=== PATIENT | male | born 1995 | race Caucasian/White ===

== ENCOUNTER → 2020-09-18 13:49 | Outpatient (BNVA) | payer MEDICARE, MEDICAID, SELFPAY | PROVIDERS: Visit Provider Psychiatry & Neurology Psychiatry | DX: F41.1 Generalized anxiety disorder (principal) | CPT/HCPCS: 99204 ==

== ENCOUNTER → 2020-10-18 07:53 | Outpatient (BNVA) | payer MEDICARE, MEDICAID, SELFPAY | PROVIDERS: Visit Provider Psychiatry & Neurology Psychiatry | DX: F41.1 Generalized anxiety disorder (principal) | CPT/HCPCS: 99213 ==

== ENCOUNTER → 2020-12-16 08:39 | Outpatient (BNVA) | payer MEDICARE, MEDICAID, SELFPAY | PROVIDERS: Visit Provider Psychiatry & Neurology Psychiatry | DX: F40.10 Social phobia, unspecified (principal); F41.1 Generalized anxiety disorder | CPT/HCPCS: 99214 ==

== ENCOUNTER → 2021-01-22 07:36 | Outpatient (BNVA) | payer MEDICARE, MEDICAID, SELFPAY | PROVIDERS: Visit Provider Psychiatry & Neurology Psychiatry | DX: F40.10 Social phobia, unspecified (principal); F41.1 Generalized anxiety disorder | CPT/HCPCS: 99214 ==

== ENCOUNTER 2021-04-27 08:07 | Emergency (ER) | payer MEDICARE, MEDICAID, SELFPAY ==
[2021-04-27 08:10] VITALS: BP 122/79; PULSE 99; RESP 16; TEMP 36.8; O2SAT 99; BMI 35.3
--- NOTE | 2021-04-27 08:24 | W.ED.URI ---
HPI - URI/Sore Throat General: Chief Complaint: General Medical Stated Complaint: sob,congestion, ringing in left ear Time Seen by Provider: 04/27/21 08:09 Source: patient Mode of arrival: ambulatory Limitations: no limitations History of Present Illness: HPI Narrative: Patient is a 25-year-old male here stating he believes he has COVID-19. Patient tells me yesterday he woke up with mild body aches, sore throat, rhinorrhea, and a cough. He states he is scheduled to receive his second Moderna COVID immunization tomorrow. No fevers. No sick contacts. MD elicited complaint: cough, sore throat, rhinorrhea, nasal congestion and other (tinnitus) Onset (ago): day(s) Severity: mild Description of mucous: clear Able to tolerate fluids by mouth: Yes Exacerbating factors: nothing Relieving factors: nothing Associated symptoms: Reports nasal congestion; Deny abdominal pain, chills, chest pain, diarrhea, epistaxis, ear or mastoid pain, fever(s), headache(s), nausea, sinus pain or vomiting Treatments prior to arrival: none Review of Systems Const: Reports: body aches; Denies: fever(s), chills, change in appetite, change in weight or fatigue Eyes: Denies: change in vision, photophobia, floaters or seeing flashes ENMT: Reports: throat pain, odynophagia, tinnitus (L), nasal discharge and nasal congestion; Denies: ear or mastoid pain, disequilibrium, epistaxis, post nasal drip or sinus pain Card: Denies: chest pain Resp: Denies: dyspnea GI: Denies: abdominal pain, nausea, vomiting or diarrhea Musc: Denies: neck pain or back pain Skin/Breast: Denies: rash Neuro: Denies: headache(s), numbness in extremities, weakness in extremities, sensory changes, dizziness or vertigo PFSH ED PFSH: Social History Smoking and tobacco status: never smoked Second hand smoke exposure: Yes Alcohol intake: current Alcohol intake frequency: holidays/special occasions only Current gender identity: Male Physical Exam Const: COMMON NORMALS: no acute distress, patient oriented x3, no limitations and alert GENERAL APPEARANCE: cooperative NUTRITIONAL APPEARANCE: overweight HENMT: COMMON NORMALS: normocephalic, atraumatic, hearing grossly normal bilaterally, external ears normal, EAC's normal, Normal external nose present, Normal nasal mucous membranes and turbinates present, moist oral mucous membranes, oropharynx normal and dentition normal HEAD & SCALP: normal to inspection, normocephalic and atraumatic FACE & SINUS: normal facial exam and sinuses nontender NOSE: Normal external nose present and Normal nasal mucous membranes and turbinates present EXTERNAL EAR: Yes external ears normal, Yes mastoids normal and Yes no periauricular adenopathy EXTERNAL AUDITORY CANAL: EAC's normal TYMPANIC MEMBRANE: TM abnormal TM laterality: left (retracted; possible cholesteatoma) MOUTH: Normal oral and palatal mucosa present, lip normal and tongue normal THROAT: posterior oropharynx normal, tonsils normal and uvula midline Eye: GENERAL EYE: appearance normal, both eyes and all related structures Neck/C-Spine: COMMON NORMALS: full ROM, no lymphadenopathy and no meningeal signs Resp: COMMON NORMALS: normal respiratory effort and clear to auscultation bilaterally AUSCULTATION: clear to auscultation bilaterally Cardio: COMMON NORMALS: regular rate and regular rhythm RATE: regular rate RHYTHM: regular rhythm Neuro: COMMON NORMALS: patient oriented x3 SENSORIUM/ORIENTATION: Yes alert MENINGEAL SIGNS: Yes no meningeal signs Skin: COMMON NORMALS: no rashes or lesions noted GENERAL SKIN EXAM: no rashes or lesions noted Course Vital Signs: Vital signs: Vital Signs Temperature 98.3 F 04/27/21 08:10 Pulse Rate 99 04/27/21 08:10 Respiratory Rate 16 04/27/21 08:10 Blood Pressure 122/79 04/27/21 08:10 Pulse Oximetry 99 04/27/21 08:10 MDM - URI/Sore Throat MDM Narrative: Medical decision making narrative: Patient clinically is in no acute distress. His vital signs are stable. CXR is negative. Rapid COVID is negative. DDx: viral URI vs allergic rhinitis. Will put in referral to ENT for L ear tinnitus and abnormal TM findings. Lab Data: Labs: Lab Results 04/27/21 Range/Units 08:33 SARS-CoV-2 Ag (Rap id) Negative (Negative) Imaging Data^: CXR: My impression: NAD Discharge Plan Discharge Patient Disposition: Home Clinical Impression: Viral URI with cough Condition: Stable Prescriptions: No Action atomoxetine [Strattera] 18 mg capsule 18 mg PO DAILY Qty: 30 RF: 2 paroxetine HCl 40 mg tablet 80 mg PO DAILY Qty: 60 RF: 2 trazodone 100 mg tablet 200 mg PO BEDTIME PRN (Reason: insomnia) RF: 0 Tylenol Cold-Flu Severe Day-Nt 0-0-70-325-200 mg (day/night) Tablets, Sequential See Rx Instructions .ROUTE .COMPLEX RF: 0 Otc Cough Syrup See Rx Instructions .ROUTE .COMPLEX RF: 0 Discharge Orders: Discharge ED (Routine); Ordered 04/27/21 Ordered By: Rebekah Schneider Patient Instructions: Upper Respiratory Infection - Adult Activity Restrictions/Additional Instructions: As we discussed your chest XR and your rapid COVID testing were negative today. Coding Level of Care Code ED Scholastic Aptitude Test Grader for Lavon Fwairam Exam Detailed
--- NOTE | 2021-04-27 08:25 | XRR_ITS ---
PROCEDURE INFORMATION: Exam: XR Chest Exam date and time: 04/27/2021 8:25 AM Age: 25 years old Clinical indication: Cough and shortness of breath; Additional info: Cough/chills TECHNIQUE: Imaging protocol: XR of the chest. Views: 1 view. COMPARISON: No relevant prior studies available. FINDINGS: Lungs: Unremarkable. No consolidation. Pleural spaces: Unremarkable. No pleural effusion. No pneumothorax. Heart/Mediastinum: Unremarkable. No cardiomegaly. Bones/joints: Unremarkable. XR/XR chest 1V portable [id number] IMPRESSION: No acute findings.
[2021-04-27 09:04] LABS: SARS Covid-2 Antigen Negative (Negative)
[2021-04-27 09:23] VITALS: RESP 16; TEMP 36.8; O2SAT 99
--- NOTE | 2021-04-28 10:45 | DCPLANNER ---
merchandise flow manager had message to schedule a follow up appointment for patient with ENT for L ear tinnitus and possible cholesteatome. merchandise flow manager emailed patients information to Candace Tracy and Naa at [facility]. merchandise flow manager emailed patients information will be printed and reviewed. Clinic will call patient with appointment information.
--- NOTE | 2021-04-29 13:26 | DCPLANNER ---
Patient has a follow up appointment scheduled for Wednesday, April at 9:[address] Kaminski. Clinic will call patient with appointment information.
--- NOTE | 2021-06-12 07:29 | DCPLANNER ---
Patient had a follow up appointment scheduled fo r06.21.21 with ENT - patient did attend the appointment.
== END 2021-04-27 09:23 | disposition home or self-care (01) ==
PROVIDERS: Emergency Provider Physician Assistant
DX: J06.9 Acute upper respiratory infection, unspecified (principal); Z77.22 Contact with and (suspected) exposure to environmental tobacco smoke (acute) (chronic)
CPT/HCPCS: 71045; 87426; 99282

== ENCOUNTER → 2021-08-19 10:39 | Outpatient (BNVA) | payer MEDICARE, MEDICAID, SELFPAY | PROVIDERS: Visit Provider Psychiatry & Neurology Psychiatry | DX: F40.10 Social phobia, unspecified (principal); F41.1 Generalized anxiety disorder | CPT/HCPCS: 99214 ==

== ENCOUNTER → 2021-11-20 10:26 | Outpatient (BNVA) | payer MEDICARE, MEDICAID, SELFPAY | PROVIDERS: Visit Provider Psychiatry & Neurology Psychiatry | DX: F40.10 Social phobia, unspecified (principal); F41.1 Generalized anxiety disorder | CPT/HCPCS: 99213 ==

== ENCOUNTER → 2022-03-20 15:40 | Outpatient (BNVA) | payer MEDICARE, MEDICAID, SELFPAY | PROVIDERS: Visit Provider Psychiatry & Neurology Psychiatry | DX: F40.10 Social phobia, unspecified (principal); F41.1 Generalized anxiety disorder | CPT/HCPCS: 99213 ==

== ENCOUNTER 2022-10-28 19:15 | Emergency (ER) | payer MEDICARE, MEDICAID, SELFPAY ==
[2022-10-28 19:22] VITALS: BMI 35.3
[2022-10-28 19:24] VITALS: BP 113/74; PULSE 101; RESP 16; TEMP 36.9; O2SAT 97
--- NOTE | 2022-10-28 20:11 | W.ED.FALL ---
HPI - Fall General: Chief Complaint: Fall Stated Complaint: fall, buttock pain Time Seen by Provider: 10/28/22 20:11 History of Present Illness: Mr. Evangelista is a 27-year-old gentleman presenting to the emergency room due to fall with reported concern over buttock contour abnormality/torn muscle. He reports slipping and falling down wet stairs landing on his buttocks. Immediately had pain which has persisted. Moderate intensity however improved to mild intensity with [id number] medications. Does have worsening with ambulation though no maryellen weakness identified. No head strike or loss of consciousness. No other specific changes in health, exacerbating, or alleviating factors identified. Onset (ago): hour(s) Fall from: down stairs (#) Fall witnessed: no Place fall occurred: home Loss of consciousness: None Prolonged down time: no Symptoms prior to fall: none Location of injury: buttocks Severity: moderate Quality: aching Associated symptoms-after fall: Reports no associated symptoms Review of Systems General: Reports: 10 or more systems reviewed and unremarkable except in HPI and below PFSH ED PFSH: Medical History Psychiatric care Social History Smoking and tobacco status: never smoked Second hand smoke exposure: Yes Smoking risk assessment/counseling performed?: No Alcohol intake: current Alcohol intake frequency: holidays/special occasions only Alcohol type: hard liquor Desire information about alcohol rehabilitation?: No Counseling given: No Desire information about substance/drug rehabilitation?: No Counseling given: No Current gender identity: Male Physical Exam Const: COMMON NORMALS: alert GENERAL APPEARANCE: cooperative and well developed HENMT: COMMON NORMALS: normocephalic and atraumatic HEAD & SCALP: normocephalic and atraumatic Eye: COMMON NORMALS: conjunctivae normal CONJUNCTIVA: Yes conjunctivae normal SCLERA: sclerae normal Neck/C-Spine: COMMON NORMALS: supple GENERAL: Yes trachea midline Resp: COMMON NORMALS: clear to auscultation bilaterally EFFORT & INSPECTION: Yes able to speak in complete sentences AUSCULTATION: clear to auscultation bilaterally Cardio: COMMON NORMALS: regular rate and regular rhythm RATE: regular rate RHYTHM: regular rhythm GI: COMMON NORMALS: Soft to palpation PALPATION: Yes Soft to palpation and No Tenderness to palpation present (GI) Back/Pelvis: OTHER: There is hematoma and linear contusion with ecchymosis consistent with patient's reported mechanism of injury. Extremity: GENERAL: Yes normal exam except as noted and No edema Neuro: COMMON NORMALS: moves all extremities SENSORIUM/ORIENTATION: Yes alert and No Orientation impaired Psych: COMMON NORMALS: mental status grossly normal and Normal thought process present THOUGHT PROCESS: Normal thought process present Course Vital Signs: Vital signs: Vital Signs Temperature 98.4 F 10/28/22 19:24 Pulse Rate 101 H 10/28/22 19:24 Respiratory Rate 16 10/28/22 19:24 Blood Pressure 113/74 10/28/22 19:24 Pulse Oximetry 97 10/28/22 19:24 Oxygen Delivery Me thod 10/28/22 19:24 MDM - Fall Medical Decision Making 27-year-old male presenting with fall and buttocks pain. No additional injury on head to toe exam. Patient's primary concern is for muscle however injury is much more consistent with hematoma and ecchymosis secondary to soft tissue injury. Minimally antalgic gait and I do not have high clinical suspicion for more severe injury or injury requiring imaging. The results of ED evaluation were discussed with the patient including prescriptions and/or symptomatic cares (if applicable) including appropriate and responsible use, followup plan, and return precautions. The patient verbalized understanding and felt safe for discharge. Medical Records I reviewed the patient's medical records. Lab Data I reviewed the patient's lab results. Discharge Plan Discharge Patient Disposition: Home Clinical Impression: Fall, Contusion, Hematoma Condition: Stable Prescriptions: No Action atomoxetine [Strattera] 18 mg capsule 18 mg PO DAILY Qty: 90 0RF paroxetine HCl 20 mg tablet 20 mg PO DAILY Qty: 90 0RF trazodone 100 mg tablet 300 mg PO BEDTIME PRN (Reason: insomnia) Qty: 270 0RF Tylenol Cold-Flu Severe Day-Nt 5-7-76-325-200 mg (day/night) Tablets, Sequential See Rx Instructions .ROUTE .COMPLEX Rx Instructions: use as directed on box. Otc Cough Syrup See Rx Instructions .ROUTE .COMPLEX Rx Instructions: use as directed on bottle. Discharge Orders: Discharge ED (Routine); Ordered 10/28/22 Ordered By: Jose Contreras Discharge Diet: Usual diet Discharge Activity: Increase activity as tolerated Patient Instructions: Contusion in Adults (ED), Hematoma (ED), Pain Management Activity Restrictions/Additional Instructions: Thank you for visiting the emergency department. You were seen and evaluated for fall with bruising and soft tissue deformity. The most likely cause of the symptoms is hematoma and soft tissue injury. This should improve with time. You may use [id number] medications such as acetaminophen and ibuprofen for pain however please do not exceed the daily recommended dosage as listed on the packaging and please keep in mind that many namebrand medications contain the same active ingredients. Please avoid these medications if previously instructed to do so by another physician due to other underlying medical condition. Please follow-up with your primary care provider, establish with a primary care provider if you do not currently have 1. Return to the emergency department for uncontrolled symptoms or anything else that you are concerned about a feel needs emergency department evaluation. Coding Level of Care Code ED Fur Vault Attendant for Lavon Rojas
== END 2022-10-28 20:29 | disposition home or self-care (01) ==
PROVIDERS: Emergency Provider Emergency Medicine
DX: S30.0XXA Contusion of lower back and pelvis, initial encounter (principal); Z77.22 Contact with and (suspected) exposure to environmental tobacco smoke (acute) (chronic); W10.8XXA Fall (on) (from) other stairs and steps, initial encounter
CPT/HCPCS: 99282

== ENCOUNTER 2022-11-01 22:03 | Emergency (ER) | payer MEDICARE, MEDICAID, SELFPAY ==
[2022-11-01 22:17] VITALS: BP 129/74; PULSE 111; RESP 18; TEMP 36.7; O2SAT 98; BMI 35.2
--- NOTE | 2022-11-01 22:23 | W.ED.WOUNDLC ---
HPI - Wound/Laceration General: Chief Complaint: Wound/Laceration Stated Complaint: back pain Time Seen by Provider: 11/01/22 22:07 History of Present Illness: 27-year-old male patient comes in today for complaints of injury to the left buttock. Injury occurred on Wednesday. Patient reports increasing size of the bruise. Patient appears nontoxic and moving without difficulty. Review of Systems Skin/Breast: Reports: other (Bruising left buttock) [facility] ED PFSH: Medical History (Updated 11/01/22 @ 22:31 by JAC Mccullough) Psychiatric care Social History (Updated 09/03/22 @ 10:53 by Jose Reveles LPN) Smoking and tobacco status: never smoked Second hand smoke exposure: Yes Smoking risk assessment/counseling performed?: No Alcohol intake: current Alcohol intake frequency: holidays/special occasions only Alcohol type: hard liquor Desire information about alcohol rehabilitation?: No Counseling given: No Desire information about substance/drug rehabilitation?: No Counseling given: No Current gender identity: Male Physical Exam Const: COMMON NORMALS: alert HENMT: COMMON NORMALS: normocephalic HEAD & SCALP: normocephalic Resp: COMMON NORMALS: normal respiratory effort Cardio: COMMON NORMALS: regular rate RATE: regular rate Extremity: RIGHT LOWER EXTREMITY: Yes hip joint (Increasing bruising to the left buttock.) Neuro: SENSORIUM/ORIENTATION: Yes alert Skin: COMMON NORMALS: turgor normal GENERAL SKIN EXAM: turgor normal Course Vital Signs: Vital signs: Vital Signs Temperature 98.1 F 11/01/22 22:17 Pulse Rate 111 H 11/01/22 22:17 Respiratory Rate 18 11/01/22 22:17 Blood Pressure 129/74 11/01/22 22:17 Pulse Oximetry 98 11/01/22 22:17 Oxygen Delivery Me thod 11/01/22 22:17 MDM - Wound/Laceration Medical Decision Making Patient comes in for evaluation of bruise to the left buttock. He had been previously seen and was concerned due to enlargement of the bruise. On exam there is a large bruise to the left buttock with central clearing. Differential diagnosis includes hematoma, contusion, fracture. No signs of fracture is noted. Patient just has a large bruise that is starting to dissipate and spread across the buttock. Reassured patient with recommendations for follow-up or return to the ER. Discharge Plan Discharge Patient Disposition: Home Clinical Impression: Contusion of buttock Qualifiers: Encounter type: subsequent encounter Qualified Code(s): S30.0XXD - Contusion of lower back and pelvis, subsequent encounter Condition: Stable Prescriptions: No Action atomoxetine [Strattera] 18 mg capsule 18 mg PO DAILY Qty: 90 0RF paroxetine HCl 20 mg tablet 20 mg PO DAILY Qty: 90 0RF trazodone 100 mg tablet 300 mg PO BEDTIME PRN (Reason: insomnia) Qty: 270 0RF Tylenol Cold-Flu Severe Day-Nt 7-3-96-325-200 mg (day/night) Tablets, Sequential See Rx Instructions .ROUTE .COMPLEX Rx Instructions: use as directed on box. Otc Cough Syrup See Rx Instructions .ROUTE .COMPLEX Rx Instructions: use as directed on bottle. Discharge Orders: Discharge ED (Routine); Ordered 11/01/22 Ordered By: David Noguera Discharge Diet: Usual diet Discharge Activity: Increase activity as tolerated Patient Instructions: Contusion in Adults (ED) Activity Restrictions/Additional Instructions: Home and rest. Ice packs to the area. Use acetaminophen as needed for pain. Use ice packs on and off for the next 3 days. And then after that she can use warm moist packs. Monitor site for signs of infection such as increased redness, and fever. Return to ER for new concerns. Coding Level of Care Code ED Lathe Tender for Lavon Rojas
[2022-11-01 22:35] VITALS: PULSE 90; RESP 18
== END 2022-11-01 22:35 | disposition home or self-care (01) ==
PROVIDERS: Emergency Provider Nurse Practitioner Family
DX: S30.0XXA Contusion of lower back and pelvis, initial encounter (principal); Z77.22 Contact with and (suspected) exposure to environmental tobacco smoke (acute) (chronic); X58.XXXA Exposure to other specified factors, initial encounter
CPT/HCPCS: 99282

== ENCOUNTER 2022-11-04 03:47 | Emergency (ER) | payer MEDICARE, MEDICAID, SELFPAY ==
[2022-11-04 03:56] VITALS: BP 123/100; PULSE 110; RESP 22; TEMP 36.9; O2SAT 98; BMI 25.1
[2022-11-04 04:02] VITALS: BP 133/91; PULSE 105; RESP 20; O2SAT 98
[2022-11-04] MEDS: LORazepam 1 mg Tablet PO (04:06)
--- NOTE | 2022-11-04 04:24 | ECG_ITS ---
[facility] Test Date: 2022-11-04 Pat Name: Antonio Evangelista Department: Room: Gender: Male Equip Tech: : 1995 Requested By: Bronson Nixon Order Number: [id number] [place] MD: Marquita Baum M.D. Measurements Intervals [place] Rate: 102 P: 51 NE: 156 QRS: 52 QRSD: 91 T: 32 QT: 331 QTc: 433 Interpretive Statements SINUS TACHYCARDIA INCOMPLETE RIGHT BUNDLE BRANCH BLOCK [90+ ms QRS DURATION, TERMINAL R IN V1/V2, 40+ ms S IN I/aVL/V4/V5/V6] NONSPECIFIC T-WAVE ABNORMALITY No previous ECG available for comparison Electronically Signed On 11-04-2022 10:11:37 MOLDED GOODS EMBOSSING PRESS OPERATOR by Marquita Baum M.D. [id number]
--- NOTE | 2022-11-04 04:35 | W.ED.GENADLT ---
HPI - General Adult General: Chief complaint: General Medical Stated complaint: right arm pain Time Seen by Provider: 11/04/22 03:48 Source: patient Mode of arrival: ambulatory Limitations: no limitations History of Present Illness: 27-year-old male states that he was playing a video game tonight and started having some tingling in his right arm and states he started with some tingling in his neck and face he states that his arm just feels that at times he has some mild pain in his lower arm denies any chest pain denies any headache he denies any fever denies any worsening proving factors. Associated symptoms: Deny chest pain, dyspnea, headache(s), nausea, rash or vomiting Review of Systems Const: Denies: fever(s), chills, body aches or change in appetite Eyes: Denies: blurry vision or eye discomfort ENMT: Denies: throat pain or dental pain Card: Denies: chest pain Resp: Denies: dyspnea GI: Denies: abdominal pain, nausea, vomiting or diarrhea : Denies: dysuria Musc: Reports: extremity pain Skin/Breast: Denies: rash Neuro: Denies: headache(s) Psych: Denies: depression Calos/Lymph: Denies: easy bruising All/Imm: Denies: urticaria PFSH ED PFSH: Medical History Psychiatric care Social History Smoking and tobacco status: never smoked Second hand smoke exposure: Yes Smoking risk assessment/counseling performed?: No Alcohol intake: current Alcohol intake frequency: holidays/special occasions only Alcohol type: hard liquor Desire information about alcohol rehabilitation?: No Counseling given: No Desire information about substance/drug rehabilitation?: No Counseling given: No Current gender identity: Male Physical Exam Const: COMMON NORMALS: no acute distress, patient oriented x3 and healthy appearing HENMT: COMMON NORMALS: normocephalic and atraumatic HEAD & SCALP: normocephalic and atraumatic Eye: COMMON NORMALS: Equal, round and reactive pupils present and EOMs intact bilaterally PUPIL: Yes Equal, round and reactive pupils present Neck/C-Spine: COMMON NORMALS: full ROM and supple Chest: COMMONS NORMALS: normal inspection of the chest and normal palpation of entire chest wall Resp: COMMON NORMALS: normal respiratory effort, No retractions, No use of accessory muscles and clear to auscultation bilaterally AUSCULTATION: clear to auscultation bilaterally Cardio: COMMON NORMALS: regular rate, regular rhythm and No murmurs present (Cardio) RATE: regular rate RHYTHM: regular rhythm GI: COMMON NORMALS: Normal to inspection, nondistended, normoactive bowel sounds present, Soft to palpation, non-tender and no masses PALPATION: Yes Soft to palpation Extremity: COMMON NORMALS: normal to inspection and full ROM Neuro: COMMON NORMALS: patient oriented x3, moves all extremities and no focal motor deficits Psych: COMMON NORMALS: mental status grossly normal, Normal thought process present and cooperative THOUGHT PROCESS: Normal thought process present Skin: COMMON NORMALS: no rashes or lesions noted and no wounds GENERAL SKIN EXAM: no rashes or lesions noted Course Vital Signs: Vital signs: Vital Signs Temperature 98.4 F 11/04/22 03:56 Pulse Rate 105 H 11/04/22 04:02 Respiratory Rate 20 H 11/04/22 04:02 Blood Pressure 133/91 11/04/22 04:02 Pulse Oximetry 98 11/04/22 04:02 [facility] - General Adult Medical Decision Making Patient presents here with paresthesias in his left arm along with some anxiety likely causing his symptoms he is well-appearing here head CT is normal no signs of acute stroke he is stable for discharge. Lab Data Radiology Impressions Head CT 11/04/22 04:46 IMPRESSION: No acute intracranial abnormality. ASSESSMENT: ASPECTS ([place] Stroke Program Early CT Score) is 10. EKG Data EKG 1: I personally reviewed and interpreted this EKG as follows: EKG interpretation date: 11/04/22 EKG interpretation time: 04:24 Interpretation: sinus tach hr [address] or t wave abnormalities qrs 91 qtc 390 Computer generated interpretation: Head CT 11/04/22 04:46 IMPRESSION: No acute intracranial abnormality. ASSESSMENT: ASPECTS ([place] Stroke Program Early CT Score) is 10. Discharge Plan Discharge Patient Disposition: Home Clinical Impression: Arm pain, Paresthesia Condition: Stable Prescriptions: No Action atomoxetine [Strattera] 18 mg capsule 18 mg PO DAILY Qty: 90 0RF paroxetine HCl 20 mg tablet 20 mg PO DAILY Qty: 90 0RF trazodone 100 mg tablet 300 mg PO BEDTIME PRN (Reason: insomnia) Qty: 270 0RF Tylenol Cold-Flu Severe Day-Nt 6-8-97-325-200 mg (day/night) Tablets, Sequential See Rx Instructions .ROUTE .COMPLEX Rx Instructions: use as directed on box. Otc Cough Syrup See Rx Instructions .ROUTE .COMPLEX Rx Instructions: use as directed on bottle. Discharge Orders: Discharge ED (Routine); Ordered 11/04/22 Ordered By: Bronson Nixon Discharge Diet: Advance as tolerated Discharge Activity: Resume usual activity Patient Instructions: Paresthesia (ED) Coding Level of Care Code ED [employer] Agent for Lavon Fwd Exam Comprehensive
--- NOTE | 2022-11-04 04:46 | CTR_ITS ---
PROCEDURE INFORMATION: Exam: CT Head Without Contrast Exam date and time: 11/04/2022 4:49 AM Age: 27 years old Clinical indication: Stroke-like symptoms; Dizziness/giddiness; RT upper extremity weakness; Additional info: [place]GU[place] TECHNIQUE: Imaging protocol: Computed tomography of the head without contrast. Radiation optimization: All CT scans at this facility use at least one of these dose optimization techniques: automated exposure control; mA and/or kV adjustment per patient size (includes targeted exams where dose is matched to clinical indication); or iterative reconstruction. Other technique: STROKE PROTOCOL was implemented. COMPARISON: No relevant prior studies available. RADIATION DOSE METRICS: Total DLP (mGy-cm): 1053.58 FINDINGS: Brain: Normal. No hemorrhage. Unremarkable white matter. No mass effect. Cerebral ventricles: No ventriculomegaly. Paranasal sinuses: Visualized sinuses are unremarkable. No fluid levels. Mastoid air cells: Visualized mastoid air cells are well aerated. Bones/joints: Unremarkable. No acute fracture. Soft tissues: Unremarkable. CT/CT head wo con* [id number] IMPRESSION: No acute intracranial abnormality. ASSESSMENT: ASPECTS ([place] Stroke Program Early CT Score) is 10.
[2022-11-04 05:40] VITALS: PULSE 92; RESP 18; O2SAT 95
== END 2022-11-04 05:41 | disposition home or self-care (01) ==
PROVIDERS: Emergency Provider Emergency Medicine
DX: M79.601 Pain in right arm (principal); R20.2 Paresthesia of skin; Z77.22 Contact with and (suspected) exposure to environmental tobacco smoke (acute) (chronic)
CPT/HCPCS: 70450; 93005; 99284

== ENCOUNTER 2022-11-06 10:39 | Emergency (ER) | payer MEDICARE, MEDICAID, SELFPAY ==
[2022-11-06 10:43] VITALS: BP 136/73; PULSE 114; RESP 18; TEMP 36.1; O2SAT 97; BMI 34.7
--- NOTE | 2022-11-06 11:47 | W.ED.GENADLT ---
HPI - General Adult General: Chief complaint: General Medical Stated complaint: dizzy,slurred speech,numbness Time Seen by Provider: 11/06/22 11:20 History of Present Illness: Patient is a 27-year-old male comes to the ED with anxiety about his health. Patient was seen here in the ED on November 04 and complaining of strokelike type symptoms. He was having symptoms of right arm tingling with right hand and arm stiffness as well. Head CT was performed on the and it was clear showed nothing acute. He was discharged home and provider thought symptoms are likely due to anxiety. Patient does have a history of anxiety disorder. Today says all his symptoms have improved but says he cannot read as fast as he could before symptoms started. Denies any new symptoms. He has an appointment with Dr. Berkowitz on November 10. Associated symptoms: Deny chest pain, dyspnea, headache(s), nausea, rash, palpitations or vomiting Review of Systems Const: Denies: fever(s), chills or fatigue Eyes: Denies: change in vision or eye discomfort ENMT: Denies: throat pain, odynophagia, nasal discharge or nasal congestion Card: Denies: chest pain, palpitations, edema, swelling of feet/ankles, dyspnea on exertion or orthopnea Resp: Denies: dyspnea, productive cough or non-productive cough GI: Denies: abdominal pain, nausea, vomiting, diarrhea, constipation or hematochezia : Denies: flank pain, difficulty urinating, dysuria or hematuria Musc: Denies: neck pain, back pain or extremity swelling Skin/Breast: Denies: rash or new lesions Neuro: Denies: headache(s), numbness in extremities or weakness in extremities PFSH ED PFSH: Medical History Psychiatric care Social History Smoking and tobacco status: never smoked Second hand smoke exposure: Yes Smoking risk assessment/counseling performed?: No Alcohol intake: current Alcohol intake frequency: holidays/special occasions only Alcohol type: hard liquor Desire information about alcohol rehabilitation?: No Counseling given: No Desire information about substance/drug rehabilitation?: No Counseling given: No Current gender identity: Male Physical Exam Const: COMMON NORMALS: patient oriented x3 HENMT: COMMON NORMALS: normocephalic HEAD & SCALP: normocephalic MOUTH: Normal oral and palatal mucosa present THROAT: posterior oropharynx normal and uvula midline Eye: COMMON NORMALS: Equal, round and reactive pupils present and EOMs intact bilaterally GENERAL EYE: appearance normal, both eyes and all related structures PUPIL: Yes Equal, round and reactive pupils present Neck/C-Spine: COMMON NORMALS: supple GENERAL: Yes normal visual inspection Lymph: LYMPHATIC: no lymphadenopathy noted Resp: COMMON NORMALS: normal respiratory effort, No retractions, No use of accessory muscles and clear to auscultation bilaterally AUSCULTATION: clear to auscultation bilaterally Cardio: COMMON NORMALS: regular rate, regular rhythm, S1 normal heart sound present, S2 normal heart sound present, No gallops present (Cardio), No clicks present (Cardio), No murmurs present (Cardio) and Peripheral pulses 2+ throughout RATE: regular rate RHYTHM: regular rhythm HEART SOUNDS: S1 normal heart sound present and S2 normal heart sound present PERIPHERAL PULSES: Peripheral pulses 2+ throughout GI: COMMON NORMALS: Normal to inspection, nondistended, normoactive bowel sounds present, Soft to palpation, non-tender and no masses PALPATION: Yes Soft to palpation : COMMON NORMALS: Yes no CVA tenderness BLADDER/KIDNEY EXAM: Yes no CVA tenderness Back/Pelvis: COMMON NORMALS: no CVA tenderness Extremity: GENERAL: Yes normal exam except as noted Neuro: COMMON NORMALS: patient oriented x3, CN's II-XII intact bilaterally, moves all extremities, no focal motor deficits and no sensory deficits noted SPEECH: speech normal GAIT: Yes Normal gait present SENSORY EXAM: Yes extremities (intact) MOTOR EXAM: 5/5 motor strength present throughout Skin: COMMON NORMALS: no rashes or lesions noted GENERAL SKIN EXAM: no rashes or lesions noted and dry skin Course Vital Signs: Vital signs: Vital Signs Temperature 97.0 F L 11/06/22 10:43 Pulse Rate 89 11/06/22 12:03 Respiratory Rate 16 11/06/22 12:03 Blood Pressure 137/93 11/06/22 12:03 Pulse Oximetry 96 11/06/22 12:03 Oxygen Delivery Me thod 11/06/22 10:43 [facility] - General Adult Medical Decision Making Patient is a 27-year-old male comes to the ED with anxiety about his health. Patient was seen here in the ED on November 04 and complaining of strokelike type symptoms. He was having symptoms of right arm tingling with right hand and arm stiffness as well. Head CT was performed on the and it was clear showed nothing acute. He was discharged home and provider thought symptoms are likely due to anxiety. Patient does have a history of anxiety disorder. Today says all his symptoms have improved but says he cannot read as fast as he could before symptoms started. Denies any new symptoms. He has an appointment with Dr. Berkowitz on November 10. Vitals are stable. Neuro exam shows no deficits. He appears nontoxic in no acute distress or pain. Patient is here in the ED just worried about his health with no signs of any acute health concerns. He has a follow-up with Dr. Berkowitz in several days for outpatient follow-up. Return to ED precautions given. Patient understood and agreed with plan. Discharge Plan Discharge Patient Disposition: Home Clinical Impression: Physically well but worried Condition: Stable Prescriptions: No Action atomoxetine [Strattera] 18 mg capsule 18 mg PO DAILY Qty: 90 0RF paroxetine HCl 20 mg tablet 20 mg PO DAILY Qty: 90 0RF trazodone 100 mg tablet 300 mg PO BEDTIME PRN (Reason: insomnia) Qty: 270 0RF Tylenol Cold-Flu Severe Day-Nt 3-5-10-325-200 mg (day/night) Tablets, Sequential See Rx Instructions .ROUTE .COMPLEX Rx Instructions: use as directed on box. Otc Cough Syrup See Rx Instructions .ROUTE .COMPLEX Rx Instructions: use as directed on bottle. Discharge Orders: Discharge ED (Routine); Ordered 11/06/22 Ordered By: Sahil Cohen Discharge Diet: Regular Discharge Activity: Increase activity as tolerated Activity Restrictions/Additional Instructions: Follow-up with medical provider at your next scheduled appointment on November 10. Continue taking all home medications as previously prescribed. Return to the ER or your medical provider if condition worsens. Please read and understand discharge instructions. Thank you for choosing [facility] for your healthcare needs today. Please realize this is an emergency room and that we are providing you with a medical screening exam and this may not be complete and all inclusive of all the testing and or work up that you may need to determine your ailment or severity of your illness. It is very important that you follow up as instructed or that you return to the Emergency Department should you have concerns or if your condition changes or worsens in any way. Coding Level of Care Code ED Flower Planter for [facility] Exam Comprehensive
--- NOTE | 2022-11-06 12:02 | PC.NURSE ---
pt reports improvement of symptoms since onset. pt speech clear, ambulatory with steady gait, able to move all extremities without assistance or difficulty.
[2022-11-06 12:03] VITALS: BP 137/93; PULSE 89; RESP 16; O2SAT 96
== END 2022-11-06 12:05 | disposition home or self-care (01) ==
PROVIDERS: Emergency Provider Physician Assistant
DX: Z03.89 Encounter for observation for other suspected diseases and conditions ruled out (principal); Z77.22 Contact with and (suspected) exposure to environmental tobacco smoke (acute) (chronic)
CPT/HCPCS: 99282

== ENCOUNTER → 2022-11-12 10:00 | Outpatient (BNVA) | payer MEDICARE, MEDICAID, SELFPAY | PROVIDERS: PCP Family Medicine; Visit Provider Family Medicine | DX: Z13.6 Encounter for screening for cardiovascular disorders (principal) | CPT/HCPCS: 80053; 83036; 85025 ==

== ENCOUNTER 2023-02-19 00:28 | Emergency (ER) | payer MEDICARE, MEDICAID, SELFPAY ==
[2023-02-19 00:32] VITALS: BP 123/81; PULSE 94; RESP 16; TEMP 36.8; O2SAT 97
--- NOTE | 2023-02-19 00:43 | ECG_ITS ---
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 Measurements Intervals Anderson Rate: 96 P: 20 DC: 125 QRS: 19 QRSD: 96 T: 0 QT: 330 QTc: 419 Interpretive Statements SINUS RHYTHM POSSIBLE RIGHT VENTRICULAR CONDUCTION DELAY [RSR (QR) IN V1/V2] MODERATE ST DEPRESSION [0.05+ mV ST DEPRESSION] Compared to ECG 11/04/2022 04:24:15 ST (T wave) deviation now present Sinus tachycardia no longer present Incomplete right bundle-branch block no longer present T-wave abnormality no longer present Electronically Signed On 02-19-2023 21:23:03 CDT by Cristina Bustillo M.D. [id number]
--- NOTE | 2023-02-19 00:43 | W.ED.GENADLT ---
HPI - General Adult General: Chief complaint: General Medical Stated complaint: nausea, fuzzy headed Time Seen by Provider: 02/19/23 00:32 Source: patient Mode of arrival: ambulatory Limitations: no limitations History of Present Illness: 27-year-old male states that just prior to arrival he started to feel nauseous he is diaphoretic states he just had a fuzzy feeling in his head as well he states he still has the nausea the diaphoresis and fuzziness is went away otherwise denies any chest pain denies any headache no slurred speech he has not vomited states he is felt close to vomiting Associated symptoms: Reports nausea; Deny chest pain, dyspnea, headache(s) or rash Review of Systems Const: Denies: fever(s), chills, body aches or change in appetite Eyes: Denies: blurry vision or eye discomfort ENMT: Denies: throat pain or dental pain Card: Denies: chest pain Resp: Denies: dyspnea GI: Reports: nausea : Denies: dysuria Musc: Denies: neck pain or back pain Skin/Breast: Denies: rash Neuro: Denies: headache(s) Psych: Denies: depression Calos/Lymph: Denies: easy bruising All/Imm: Denies: urticaria PFSH ED PFSH: Medical History Psychiatric care Social History Smoking and tobacco status: never smoked Second hand smoke exposure: Yes Smoking risk assessment/counseling performed?: No Alcohol intake: current Alcohol intake frequency: holidays/special occasions only Alcohol type: hard liquor Desire information about alcohol rehabilitation?: No Counseling given: No Desire information about substance/drug rehabilitation?: No Counseling given: No Current gender identity: Male Physical Exam Const: COMMON NORMALS: no acute distress, patient oriented x3 and healthy appearing HENMT: COMMON NORMALS: normocephalic and atraumatic HEAD & SCALP: normocephalic and atraumatic Eye: COMMON NORMALS: Equal, round and reactive pupils present and EOMs intact bilaterally PUPIL: Yes Equal, round and reactive pupils present Neck/C-Spine: COMMON NORMALS: full ROM and supple Chest: COMMONS NORMALS: normal inspection of the chest and normal palpation of entire chest wall Resp: COMMON NORMALS: normal respiratory effort, No retractions, No use of accessory muscles and clear to auscultation bilaterally AUSCULTATION: clear to auscultation bilaterally Cardio: COMMON NORMALS: regular rate, regular rhythm and No murmurs present (Cardio) RATE: regular rate RHYTHM: regular rhythm GI: COMMON NORMALS: Normal to inspection, nondistended, normoactive bowel sounds present, Soft to palpation, non-tender and no masses PALPATION: Yes Soft to palpation Extremity: COMMON NORMALS: normal to inspection and full ROM Neuro: COMMON NORMALS: patient oriented x3, moves all extremities and no focal motor deficits Psych: COMMON NORMALS: mental status grossly normal, Normal thought process present and cooperative THOUGHT PROCESS: Normal thought process present Skin: COMMON NORMALS: no rashes or lesions noted and no wounds GENERAL SKIN EXAM: no rashes or lesions noted Course Vital Signs: Vital signs: Vital Signs Temperature 98.3 F 02/19/23 00:32 Pulse Rate 94 02/19/23 00:32 Respiratory Rate 16 02/19/23 00:32 Blood Pressure 123/81 02/19/23 00:32 Pulse Oximetry 97 02/19/23 00:32 Oxygen Delivery Me thod 02/19/23 00:32 MDM - General Adult Medical Decision Making Patient presents here with nausea he did have some diaphoresis at home has been well-appearing here his EKG blood work is all normal he feels improved we will prescribe Zofran for home he is to follow-up his PCP and return if worsening. Lab Data 02/19/23 01:08 02/19/23 01:08 Laboratory Results WBC 9.9 10^3/uL (4.0-10.0) 02/19/23 01:08 RBC 5.57 10^6/uL (4.1-5.3) H 02/19/23 01:08 Hgb 15.2 g/dL (11.7-16.6) 02/19/23 01:08 Hct 45.7 % (42.0-52.0) 02/19/23 01:08 MCV 82.0 fl (80-94) 02/19/23 01:08 MCH 27.3 pg (28.0-34.0) L 02/19/23 01:08 MCHC 33.3 g/dL (30.0-36.0) 02/19/23 01:08 RDW 12.0 % (12.1-15.1) L 02/19/23 01:08 Plt Count 241 10^3/cmm (130-400) 02/19/23 01:08 MPV 11.3 fL (7.4-10.4) H 02/19/23 01:08 Neut % (Auto) 60.9 % 02/19/23 01:08 Lymph % (Auto) 29.5 % 02/19/23 01:08 Norman % (Auto) 5.8 % 02/19/23 01:08 Eos % (Auto) 2.6 % 02/19/23 01:08 Baso % (Auto) 0.8 % 02/19/23 01:08 Neut # (Auto) 6.05 10^3/uL (1.8-7.7) 02/19/23 01:08 Lymph # (Auto) 2.9 10^3/uL (0.8-4.8) 02/19/23 01:08 Norman # (Auto) 0.6 10^3/uL (0.2-0.9) 02/19/23 01:08 Eos # (Auto) 0.3 10^3/uL (0.0-0.8) 02/19/23 01:08 Baso # (Auto) 0.1 10^3/uL (0.0-0.1) 02/19/23 01:08 Nucleated RBC % (auto) 0 % 02/19/23 01:08 Nucleated RBCs # 0.0 /100WBC 02/19/23 01:08 Sodium 137 mmol/L (136-145) 02/19/23 01:08 Potassium 3.7 mmol/L (3.5-5.1) 02/19/23 01:08 Chloride 100 mmol/L (98-107) 02/19/23 01:08 Carbon Dioxide 25 mmol/L (22-29) 02/19/23 01:08 Anion Gap 15.7 (5-19) 02/19/23 01:08 BUN 13 mg/dL (6-20) 02/19/23 01:08 Creatinine 0.9 mg/dL (0.7-1.2) 02/19/23 01:08 GFR Calculation 100.5 mL/min (90-130) 02/19/23 01:08 Glucose 96 mg/dL (65-115) 02/19/23 01:08 Calculated Osmolality 284 mOsm/kg (285-295) L 02/19/23 01:08 Calcium 9.1 mg/dL (8.5-10.5) 02/19/23 01:08 Total Bilirubin 0.4 mg/dL (0.15-1.2) 02/19/23 01:08 AST 13 U/L (0-40) 02/19/23 01:08 ALT 14 U/L (0-41) 02/19/23 01:08 Alkaline Phosphatase 92 U/L (40-130) 02/19/23 01:08 Total Protein 7.5 g/dL (6.6-8.7) 02/19/23 01:08 Albumin 4.4 g/dL (3.5-5.2) 02/19/23 01:08 Globulin 3.1 g/dL (1.3-4.6) 02/19/23 01:08 Lipase 22 U/L (13-60) 02/19/23 01:08 EKG Data EKG 1: I personally reviewed and interpreted this EKG as follows: EKG interpretation date: 02/19/23 EKG interpretation time: 00:43 Interpretation: nsr hr [address] or t wave abnormalities qrs 96 qtc 384 Discharge Plan Discharge Patient Disposition: Home Clinical Impression: Nausea Condition: Stable Prescriptions: New ondansetron 4 mg tablet,disintegrating 4 mg PO Q6H PRN (Reason: nausea and vomiting) Qty: 14 0RF No Action atomoxetine [Strattera] 18 mg capsule 18 mg PO DAILY Qty: 90 0RF paroxetine HCl 20 mg tablet 20 mg PO DAILY Qty: 90 0RF trazodone 100 mg tablet 300 mg PO BEDTIME PRN (Reason: insomnia) Qty: 270 0RF Discharge Orders: Discharge ED (Routine); Ordered 02/19/23 Ordered By: Bronson Nixon Referrals: Morelia Berkowitz DO [Primary Care Provider] - 1-3 days Discharge Diet: Advance as tolerated Discharge Activity: Resume usual activity Patient Instructions: Acute Nausea and Vomiting (ED) Coding Level of Care Code ED 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
[2023-02-19] MEDS: ondansetron 2 mg/ML SDV 2 mL 4 MG IVP (01:04)
[2023-02-19] MEDS: sodium chloride 0.9% 1,000 ML 999 ML IV (01:04)
[2023-02-19 01:13] LABS: Basophils # 0.1 10^3/uL (0.0-0.1); Basophils % 0.8 %; Eosinophils # 0.3 10^3/uL (0.0-0.8); Eosinophils % 2.6 %; Hematocrit 45.7 % (42.0-52.0); Hemoglobin 15.2 g/dL (11.7-16.6); Lymphocytes # 2.9 10^3/uL (0.8-4.8); Lymphocytes % 29.5 %; Mean Corpuscular HGB Conc 33.3 g/dL (30.0-36.0); Mean Corpuscular Hemoglobin 27.3 pg (28.0-34.0); Mean Platelet Volume 11.3 fL (7.4-10.4); Monocytes # 0.6 10^3/uL (0.2-0.9); Monocytes % 5.8 %; Neutrophils # 6.05 10^3/uL (1.8-7.7); Neutrophils % 60.9 %; Nucleated Red Blood Cells % 0 %; Platelet Count 241 10^3/cmm (130-400); Red Blood Count 5.57 10^6/uL (4.1-5.3); White Blood Count 9.9 10^3/uL (4.0-10.0)
[2023-02-19 01:29] LABS: Alanine Aminotransferase 14 U/L (0-41); Albumin Level 4.4 g/dL (3.5-5.2); Alkaline Phosphatase 92 U/L (40-130); Anion Gap 15.7 (5-19); Aspartate Amino Transferase 13 U/L (0-40); Blood Urea Nitrogen 13 mg/dL (6-20); Calcium 9.1 mg/dL (8.5-10.5); Carbon Dioxide 25 mmol/L (22-29); Chloride 100 mmol/L (98-107); Globulin 3.1 g/dL (1.3-4.6); Glomerular Filtration Rate 100.5 mL/min (90-130); Glucose 96 mg/dL (65-115); Lipase 22 U/L (13-60); Osmolality Calculated 284 mOsm/kg (285-295); Potassium 3.7 mmol/L (3.5-5.1); Sodium 137 mmol/L (136-145); Total Bilirubin 0.4 mg/dL (0.15-1.2); Total Protein 7.5 g/dL (6.6-8.7)
[2023-02-19 02:00] VITALS: BP 119/78; PULSE 80; RESP 18; O2SAT 99
== END 2023-02-19 02:07 | disposition home or self-care (01) ==
PROVIDERS: Emergency Provider Emergency Medicine; PCP Family Medicine
DX: R11.0 Nausea (principal); Z77.22 Contact with and (suspected) exposure to environmental tobacco smoke (acute) (chronic)
CPT/HCPCS: 80053; 83690; 85025; 93005; 96361; 96374; 99284; J2405; J7030

== ENCOUNTER 2023-05-25 09:51 | Emergency (ER) | payer MEDICARE, MEDICAID, SELFPAY ==
[2023-05-25 09:57] VITALS: BP 154/100; PULSE 92; RESP 16; TEMP 36.5; O2SAT 97; BMI 36.4
--- NOTE | 2023-05-25 13:07 | CTR_ITS ---
PROCEDURE INFORMATION: Exam: CT Head Without Contrast Exam date and time: 05/25/2023 1:26 PM Age: 28 years old Clinical indication: Pain; Headache; Additional info: Headache, left sided temporal area, vision changes TECHNIQUE: Imaging protocol: Computed tomography of the head without contrast. Radiation optimization: All CT scans at this facility use at least one of these dose optimization techniques: automated exposure control; mA and/or kV adjustment per patient size (includes targeted exams where dose is matched to clinical indication); or iterative reconstruction. REPORTING DATA: Count of CT and Cardiac NM exams in prior 12 months: This patient has received [address] and 0 known cardiac nuclear medicine studies in the 12 months prior to the current study. COMPARISON: CT head wo con* [id number] 11/04/2022 4:49 AM RADIATION DOSE METRICS: Total DLP (mGy-cm): 1057.34 FINDINGS: Brain: Normal. No hemorrhage. No space-occupying masses or areas of mass effect. No edema or midline shift. Cortical sulci are unremarkable for age. Cerebral ventricles: No ventriculomegaly. Paranasal sinuses: Visualized sinuses are unremarkable. No fluid levels. Mastoid air cells: Visualized mastoid air cells are well aerated. Bones/joints: Unremarkable. Soft tissues: Unremarkable. CT/CT head wo con* [id number] IMPRESSION: Negative CT examination of the head. No acute intracranial abnormalities.
--- NOTE | 2023-05-25 13:23 | ED_ITS ---
HPI - Headache General: Chief Complaint: Headache Stated Complaint: Head pressure Time Seen by Provider: 05/25/23 11:50 History of Present Illness: Patient presents to the ER complaining of a headache on his left temporal region that has been constant for at least the last 5 days. Patient said this has been on and off for the last 3 months but no known triggers or no known resolving agents. 3 months ago patient did have strokelike symptoms when his headache started. Patient was evaluated for that in the strokelike symptoms resolved but the headache has persisted. Patient has not followed up with his family practice doctor and/or neurologist since that event. Patient does state he normally gets headaches due to his poor vision but they are usually on the right side and he has known triggers. He states these are differ Patient is also complaining of insomnia and asked if we could write him something for the next several days. Review of Systems General: Reports: 10 or more systems reviewed and unremarkable except in HPI and below PFSH ED PFSH: Medical History Psychiatric care Social History Smoking and tobacco status: never smoked Second hand smoke exposure: Yes Smoking risk assessment/counseling performed?: No Alcohol intake: current Alcohol intake frequency: holidays/special occasions only Alcohol type: hard liquor Desire information about alcohol rehabilitation?: No Counseling given: No Substance/Drug Use: never Desire information about substance/drug rehabilitation?: No Counseling given: No Current gender identity: Male Physical Exam Const: COMMON NORMALS: no acute distress, average body habitus, patient oriented x3, no limitations, healthy appearing, alert and well nourished HENMT: COMMON NORMALS: normocephalic, atraumatic, hearing grossly normal bilaterally, external ears normal, Normal external nose present and moist oral mucous membranes HEAD & SCALP: normocephalic and atraumatic NOSE: Normal external nose present EXTERNAL EAR: Yes external ears normal Eye: COMMON NORMALS: Equal, round and reactive pupils present, EOMs intact bilaterally, conjunctivae normal and no scleral icterus CONJUNCTIVA: Yes conjunctivae normal PUPIL: Yes Equal, round and reactive pupils present Neck/C-Spine: COMMON NORMALS: full ROM, no lymphadenopathy, supple, no meningeal signs, no JVD and Thyroid normal THYROID: Thyroid normal Chest: COMMONS NORMALS: normal inspection of the chest and normal palpation of entire chest wall Resp: COMMON NORMALS: normal respiratory effort, No retractions, No use of accessory muscles and clear to auscultation bilaterally AUSCULTATION: clear to auscultation bilaterally Cardio: COMMON NORMALS: no JVD, regular rate, regular rhythm, S1 normal heart sound present, S2 normal heart sound present, No gallops present (Cardio), No clicks present (Cardio), No murmurs present (Cardio) and No rub (Cardio) RATE: regular rate RHYTHM: regular rhythm HEART SOUNDS: S1 normal heart sound present and S2 normal heart sound present GI: COMMON NORMALS: Normal to inspection, nondistended, normoactive bowel sounds present, Soft to palpation, non-tender, No hepatosplenomegaly present and no masses PALPATION: Yes Soft to palpation and Yes No hepatosplenomegaly present : COMMON NORMALS: Yes no CVA tenderness BLADDER/KIDNEY EXAM: Yes no CVA tenderness Back/Pelvis: COMMON NORMALS: no CVA tenderness Neuro: COMMON NORMALS: patient oriented x3 SENSORIUM/ORIENTATION: Yes alert MENINGEAL SIGNS: Yes no meningeal signs Course Vital Signs: Vital signs: Vital Signs Temperature 97.7 F 05/25/23 09:57 Pulse Rate 92 05/25/23 09:57 Respiratory Rate 16 05/25/23 09:57 Blood Pressure 154/100 05/25/23 09:57 Pulse Oximetry 97 05/25/23 09:57 Oxygen Delivery Me thod Room Air 05/25/23 09:57 MDM - Headache Medical Decision Making Patient presents to the ER today with complaints of chronic left-sided headache for the last several months. Off and on but has been worse the last 5 days. Patient states he would like to have an MRI. This was explained we do not normally do MRIs to the ER especially people with no focal neurologic signs. Patient will be referred to neuro for chronic headaches. Patient will be given a prescription for Ambien 5 mg to help him sleep at night. Patient is to follow back up with his PCP in approximately the next 7 days for further evaluation and work-up. Differential Diagnosis Likely headache; Unlikely migraine, tension headache, subarachnoid hemorrhage, meningitis, sinusitis or postconcussion syndrome Medical Records I reviewed the patient's medical records. Lab Data I reviewed the patient's lab results. Radiology Impressions Head CT 05/25/23 13:07 IMPRESSION: Negative CT examination of the head. No acute intracranial abnormalities. Discharge Plan Discharge Patient Disposition: Home Clinical Impression: Headache Qualifiers: Headache type: unspecified Headache chronicity pattern: acute headache Intractability: not intractable Qualified Code(s): R51.9 - Headache, unspecified Insomnia Qualifiers: Insomnia type: unspecified Qualified Code(s): G47.00 - Insomnia, unspecified Condition: Stable Prescriptions: New Ambien 5 mg tablet 5 mg PO .qhs PRN (Reason: insomnia) Qty: 7 0RF No Action atomoxetine [Strattera] 18 mg capsule 18 mg PO DAILY Qty: 90 0RF paroxetine HCl 20 mg tablet 20 mg PO DAILY Qty: 90 0RF trazodone 100 mg tablet 300 mg PO BEDTIME PRN (Reason: insomnia) Qty: 270 0RF ondansetron 4 mg tablet,disintegrating 4 mg PO Q6H PRN (Reason: nausea and vomiting) Qty: 14 0RF Discharge Orders: Discharge ED (Routine); Ordered 05/25/23 Ordered By: Kevon Miller Referrals: Morelia Berkowitz DO [Primary Care Provider] - 1 week Patient Instructions: Headache, Insomnia Activity Restrictions/Additional Instructions: Please use all medications as directed. You have been referred to case management for consult to neurology secondary to your headaches. If you have not heard from them in the next 2-3 business days feel free to call back. Otherwise please follow-up with your primary care provider in the next 7 to 10 days as needed. Coding Level of Care Code ED Staff Physical Therapy Assistant for Lavon Rojas
[2023-05-25 14:00] VITALS: BP 123/73
--- NOTE | 2023-05-26 08:56 | DCPLANNER ---
Addendum entered by Patricia Carlson 07/01/23 09:54: Patient did attend appointment scheduled with neurology Addendum entered by Patricia Carlson 06/08/23 14:19: Patient has a follow up appointment scheduled for Sunday, June 18, 2023 at 9:[address] Bello at neurology. Original Note: procurement manager had message to schedule a follow up appointment for patient with neurology. procurement manager sent patients information to the front office staff at neurology. Patients information will be printed and reviewed. Clinic will call patient with appointment information.
== END 2023-05-25 14:22 | disposition home or self-care (01) ==
PROVIDERS: Emergency Provider Emergency Medicine; PCP Family Medicine
DX: R51.9 Headache, unspecified (principal); G47.00 Insomnia, unspecified; Z79.899 Other long term (current) drug therapy
CPT/HCPCS: 70450; 99284

== ENCOUNTER → 2023-06-11 13:21 | Outpatient (BNVA) | payer MEDICARE, MEDICAID, SELFPAY | PROVIDERS: PCP Family Medicine; Visit Provider Family Medicine | DX: I10 Essential (primary) hypertension (principal); D50.9 Iron deficiency anemia, unspecified | CPT/HCPCS: 82728; 83550; 84443; 85025 ==

== ENCOUNTER → 2023-06-18 09:04 | Outpatient (BNVA) | payer MEDICARE, MEDICAID, SELFPAY | PROVIDERS: PCP Family Medicine; Referring Provider Emergency Medicine; Visit Provider Specialist | DX: G44.59 Other complicated headache syndrome (principal) | CPT/HCPCS: 99204 ==

== ENCOUNTER 2023-07-02 23:37 | Emergency (ER) | payer MEDICARE, MEDICAID, SELFPAY ==
[2023-07-02 23:41] VITALS: BP 134/84; PULSE 103; RESP 16; TEMP 36.6; O2SAT 98; BMI 35.3
[2023-07-03 00:29] VITALS: BP 129/85; PULSE 108; RESP 16; O2SAT 98
--- NOTE | 2023-07-03 00:38 | ED_ITS ---
HPI - General Adult General: Chief complaint: General Medical Stated complaint: right arm numbness Time Seen by Provider: 07/03/23 00:02 History of Present Illness: 28-year-old male presenting with pressure in the right side of his head in the temporal region for the last week. He says he has had nearly constant pressure since the . Pain is improved in the morning, but within 20 minutes to an hour it seems to be back. He is also noted that his blood pressure has been high at times. This evening, for instance, it was 166 systolic. He took an extra lisinopril 10 mg, and it has decreased to some degree. This evening, he also noted numbness to the right arm which has improved to some degree. No chest pain, no shortness of breath. No weakness or dizziness, no vision changes. Associated symptoms: Reports headache(s); Deny chest pain, confusion, dyspnea, nausea, rash, palpitations or vomiting Review of Systems Const: Denies: fever(s), chills or body aches Eyes: Denies: change in vision Card: Denies: chest pain or palpitations Resp: Denies: dyspnea, productive cough, non-productive cough or wheezing GI: Denies: abdominal pain, nausea, vomiting, diarrhea or hematochezia Skin/Breast: Denies: rash Neuro: Reports: headache(s) and numbness in extremities; Denies: weakness in extremities, dizziness or confusion PFSH ED PFSH: Medical History Psychiatric care Social History Smoking and tobacco status: never smoked Second hand smoke exposure: Yes Smoking risk assessment/counseling performed?: No Alcohol intake: current Alcohol intake frequency: holidays/special occasions only Alcohol type: hard liquor Desire information about alcohol rehabilitation?: No Counseling given: No Substance/Drug Use: never Desire information about substance/drug rehabilitation?: No Counseling given: No Current gender identity: Male Physical Exam Const: COMMON NORMALS: no acute distress GENERAL APPEARANCE: cooperative and anxious; not ill appearing and not frail appearing HENMT: COMMON NORMALS: normocephalic, atraumatic and Normal external nose present HEAD & SCALP: normocephalic and atraumatic FACE & SINUS: normal facial exam and face symmetric NOSE: Normal external nose present Eye: COMMON NORMALS: Equal, round and reactive pupils present and EOMs intact bilaterally PUPIL: Yes Equal, round and reactive pupils present Neck/C-Spine: GENERAL: Yes trachea midline Chest: CHEST: Yes Symmetrical chest wall rise Resp: COMMON NORMALS: normal respiratory effort, No retractions, No use of accessory muscles and clear to auscultation bilaterally AUSCULTATION: clear to auscultation bilaterally Cardio: COMMON NORMALS: regular rate and regular rhythm RATE: regular rate RHYTHM: regular rhythm GI: COMMON NORMALS: Normal to inspection, nondistended, normoactive bowel sounds present Extremity: COMMON NORMALS: no pedal edema Neuro: JASBIR COMA SCALE: document GCS findings Jasbir coma scale eye opening: Spontaneous [place] coma scale verbal response: Orientated Jasbir coma scale motor response: Obey commands [place] coma scale total score: 15 SENSORY EXAM: Yes extremities (intact) Psych: COMMON NORMALS: speech normal SPEECH: Yes normal speech Skin: COMMON NORMALS: no rashes or lesions noted GENERAL SKIN EXAM: no rashes or lesions noted Course Vital Signs: Vital signs: Vital Signs Temperature 97.8 F 07/02/23 23:41 Pulse Rate 97 07/03/23 02:06 Respiratory Rate 14 07/03/23 02:06 Blood Pressure 116/75 07/03/23 02:06 Pulse Oximetry 97 07/03/23 02:06 Oxygen Delivery Me thod Room Air 07/03/23 01:41 MDM - General Adult Medical Decision Making Infusion of decadron with toradol and Zofran did not seem to help the patient's head pressure. Paresthesia did not improve either. He's quite concerned about th is. He is normal intensive at this point. We will increase his lisinopril dosage to 20 milligrams daily he'll return to see neurology as an outpatient. Since he has had three negative head CT's, I do not believe a repeat CT at this point would provide any benefit. Discharge Plan Discharge Patient Disposition: Home Clinical Impression: Migraine headache, Hypertension Condition: Stable Prescriptions: New lisinopril 20 mg tablet 20 mg PO DAILY Qty: 30 0RF Discontinued lisinopril 10 mg tablet 10 mg PO DAILY Qty: 30 0RF No Action amitriptyline 25 mg tablet 25 mg PO DAILY Qty: 1 2RF Discharge Orders: Discharge ED (Routine); Ordered 07/03/23 Ordered By: Axel Starks Referrals: Betty Bello MD [Physician] - 7-10 days Morelia Berkowitz DO [Primary Care Provider] - 1-3 days Discharge Diet: Advance as tolerated Discharge Activity: Increase activity as tolerated Patient Instructions: Migraine Headache (ED), Hypertension (ED) Activity Restrictions/Additional Instructions: Increase your dose of lisinopril as described above. Return for mental status changes, weakness, vision problems, other concerning symptoms. Check your blood pressure twice a day on the new dosage of medication and report numbers to your physician. Increase your aspirin dosage to 325 mg daily unless told otherwise by your doctors. Coding Level of Care Code ED Servicenow Administrator for Lavon Rojas
[2023-07-03] MEDS: ketorolac 30 mg/mL INJ 15 MG IVP (00:50)
[2023-07-03] MEDS: ondansetron 2 mg/ML SDV 2 mL 4 MG IVP (00:51)
[2023-07-03] MEDS: valproic acid inj 500 MG in sodium chloride 0.9% 50 ML 55 MG IV (00:52)
[2023-07-03 01:02] VITALS: BP 114/75; PULSE 101; RESP 16; O2SAT 94
[2023-07-03 01:41] VITALS: BP 116/75; PULSE 93; RESP 18; O2SAT 94
[2023-07-03 02:06] VITALS: BP 116/75; PULSE 97; RESP 14; O2SAT 97
== END 2023-07-03 02:08 | disposition home or self-care (01) ==
PROVIDERS: Emergency Provider Emergency Medicine; PCP Family Medicine
DX: G43.909 Migraine, unspecified, not intractable, without status migrainosus (principal); I10 Essential (primary) hypertension
CPT/HCPCS: 96365; 96375; 99284; J1885; J2405; J3490

== ENCOUNTER → 2023-08-09 10:24 | Outpatient (BNVA) | payer MEDICARE, MEDICAID, SELFPAY | PROVIDERS: PCP Family Medicine; Visit Provider Specialist | DX: G43.101 Migraine with aura, not intractable, with status migrainosus (principal) | CPT/HCPCS: 99214 ==

== ENCOUNTER 2023-09-01 14:21 | Outpatient (CLI) | payer MEDICARE, MEDICAID, SELFPAY ==
--- NOTE | 2023-09-01 14:30 | MR_ITS ---
WS: [id number] MRI BRAIN WITHOUT CONTRAST HISTORY: G43.101 - Migraine with aura, not intractable, with statu... COMPARISON: CT heads 05/25/2023 TECHNIQUE: Diffusion imaging, multiplanar T1, T2 and FLAIR imaging obtained. No evidence for acute infarct or hemorrhage. [place]-white matter differentiation is normal. No remote or acute infarcts are volume loss. Normal hippocampal formations. No atrophy. Ventricles and extra-axial spaces are normal. No inferior displacement of cerebellar tonsils. The sella turcica and pituitary gland are unremarkabl e. Dural venous sinuses and [place] of [place] demonstrate no abnormality on this unenhanced studies. Paranasal sinuses: Clear. Mastoid air cells: Normal. Calvarium and scalp: Intact. IMPRESSION: 1. Unremarkable noncontrast MRI brain. 2. No diffusion abnormalities. No acute infarct.
== END 2023-09-01 14:22 | disposition home or self-care (01) ==
LOC: RAD 14:21
PROVIDERS: PCP Family Medicine; Visit Provider Specialist
DX: G43.101 Migraine with aura, not intractable, with status migrainosus (principal)
CPT/HCPCS: 70551

== ENCOUNTER → 2023-09-28 10:48 | Outpatient (BNVA) | payer MEDICARE, MEDICAID, SELFPAY | PROVIDERS: PCP Family Medicine; Visit Provider Specialist | DX: G43.101 Migraine with aura, not intractable, with status migrainosus (principal); R56.9 Unspecified convulsions | CPT/HCPCS: 95816 ==

== ENCOUNTER → 2023-11-03 07:39 | Outpatient (BNVA) | payer MEDICARE, MEDICAID, SELFPAY | PROVIDERS: PCP Family Medicine; Visit Provider Specialist | DX: G43.101 Migraine with aura, not intractable, with status migrainosus (principal); K59.00 Constipation, unspecified; R68.2 Dry mouth, unspecified | CPT/HCPCS: 99214 ==

== ENCOUNTER 2024-02-24 15:50 | Outpatient (CLI) | payer MEDICARE, MEDICAID, SELFPAY ==
--- NOTE | 2024-02-24 15:55 | XRR_ITS ---
PROCEDURE INFORMATION: Exam: XR Pelvis Exam date and time: 02/24/2024 4:07 PM Age: 28 years old Clinical indication: Pain; Other: Left side of the butt; Additional info: Left glut pain TECHNIQUE: Imaging protocol: Radiologic exam of the pelvis. Views: 1 or 2 view. COMPARISON: No relevant prior studies available. FINDINGS: Bones/joints: Unremarkable. No acute fracture. Soft tissues: Unremarkable. XR/XR pelvis 1-2V* [id number] IMPRESSION: No acute findings.
== END 2024-02-24 15:51 | disposition home or self-care (01) ==
LOC: RAD 15:53
PROVIDERS: PCP Family Medicine; Visit Provider Emergency Medicine
DX: R10.2 Pelvic and perineal pain (principal)
CPT/HCPCS: 72170

== ENCOUNTER → 2024-05-03 13:57 | Outpatient (BNVA) | payer MEDICARE, MEDICAID, SELFPAY | PROVIDERS: PCP Family Medicine; Visit Provider Specialist | DX: G43.101 Migraine with aura, not intractable, with status migrainosus (principal) | CPT/HCPCS: 99214 ==

== ENCOUNTER → 2024-07-03 14:39 | Outpatient (BNVA) | payer MEDICARE, MEDICAID, SELFPAY | PROVIDERS: PCP Family Medicine; Visit Provider Family Medicine | DX: B19.20 Unspecified viral hepatitis C without hepatic coma (principal) | CPT/HCPCS: 80053; 80074 ==

== ENCOUNTER 2024-12-21 20:43 | Emergency (ER) | payer MEDICARE, MEDICAID, SELFPAY ==
--- NOTE | 2024-12-21 20:55 | ECG_ITS ---
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 Measurements Intervals [place] Rate: 109 P: 42 NM: 149 QRS: 44 QRSD: 88 T: 25 QT: 353 QTc: 475 Interpretive Statements SINUS TACHYCARDIA POSSIBLE RIGHT VENTRICULAR CONDUCTION DELAY [RSR (QR) IN V1/V2] NONSPECIFIC T-WAVE ABNORMALITY Compared to ECG 02/19/2023 00:43:58 T-wave abnormality now present Sinus rhythm no longer present ST (T wave) deviation no longer present Electronically Signed On 12-21-2024 21:47:39 DEVELOPMENT EXECUTIVE by Sajan Lowry M.D. [id number]
[2024-12-21 20:57] VITALS: BP 117/79; PULSE 103; RESP 16; TEMP 36.8; O2SAT 97; BMI 34.4
--- NOTE | 2024-12-21 22:19 | XRR_ITS ---
PROCEDURE INFORMATION: Exam: XR Chest Exam date and time: 12/21/2024 10:38 PM Age: 29 years old Clinical indication: Pain; Chest pressure; Additional info: Cp TECHNIQUE: Imaging protocol: Radiologic exam of the chest. Views: 1 view. COMPARISON: CR XR chest 1V portable [id number] 04/27/2021 8:32 AM FINDINGS: Lungs: Unremarkable. No consolidation. Pleural spaces: Unremarkable. No pleural effusion. No pneumothorax. Heart/Mediastinum: Unremarkable. No cardiomegaly. Bones/joints: Unremarkable. XR/XR chest 1V portable [id number] IMPRESSION: No acute cardiopulmonary process.
[2024-12-21 22:45] LABS: Basophils # 0.1 10^3/uL (0.0-0.1); Basophils % 0.8 %; Eosinophils # 0.1 10^3/uL (0.0-0.8); Eosinophils % 1.5 %; Hematocrit 46.8 % (37-53); Lymphocytes # 2.2 10^3/uL (0.8-4.8); Lymphocytes % 25.2 %; Mean Corpuscular HGB Conc 33.5 g/dL (30-55); Mean Corpuscular Hemoglobin 27.5 pg (27-33); Mean Platelet Volume 11.1 fL (7.4-10.4); Monocytes # 0.4 10^3/uL (0.2-0.9); Neutrophils # 5.81 10^3/uL (1.8-7.7); Neutrophils % 67.2 %; Nucleated Red Blood Cells % 0 %; Platelet Count 268 10^3/cmm (157-399); Red Blood Count 5.71 10^6/uL (3.85-5.65); Red Cell Distribution Width 12.1 % (12.1-15.1); White Blood Count 8.65 10^3/uL (3.29-11.43)
[2024-12-21 23:10] LABS: Troponin(5th) Baseline < 6 ng/L (0-15)
[2024-12-21 23:11] LABS: Anion Gap 16.4 (5-19); Blood Urea Nitrogen 15 mg/dL (6-20); Calcium 9.2 mg/dL (8.5-10.5); Carbon Dioxide 25 mmol/L (22-29); Chloride 100 mmol/L (98-107); Creatinine Clr Calc Pharmacy 190.6335; Glomerular Filtration Rate 132.4 mL/min (90-130); Glucose 104 mg/dL (65-115); Osmolality Calculated 285 mOsm/kg (285-295); Potassium 4.4 mmol/L (3.5-5.1); Sodium 137 mmol/L (136-145)
--- NOTE | 2024-12-22 00:22 | ECG_ITS ---
[facility]: 2024-[facility]-22 Pat Name: Antonio Evangelista Department: Room: Gender: Male Optical Manager: : 1995 Requested By: Kevon Miller Order Number: [id number] Rico MD: RAMEZ TAVARES Measurements Intervals [place] Rate: 95 P: 36 WI: 151 QRS: 52 QRSD: 93 T: 32 QT: 328 QTc: 412 Interpretive Statements SINUS RHYTHM POSSIBLE LEFT ATRIAL ENLARGEMENT [-0.1mV P-WAVE IN V1/V2] POSSIBLE RIGHT VENTRICULAR CONDUCTION DELAY [RSR (QR) IN V1/V2] Compared to ECG 12/21/2024 20:55:50 Sinus tachycardia no longer present T-wave abnormality no longer present Electronically Signed On 12-24-2024 21:13:30 RAVELER by RAMEZ TAVARES [email or web address]
[2024-12-22 00:32] VITALS: BP 129/78; PULSE 94; RESP 20; O2SAT 96
[2024-12-22 00:45] VITALS: BP 129/78; PULSE 91; RESP 21; O2SAT 97
[2024-12-22 00:54] LABS: Troponin 5 2HR Delta 0.00001 ABS# (0-10)
--- NOTE | 2024-12-22 00:56 | W.ED.CHESTPA ---
HPI - Chest Pain General: Chief Complaint: Chest Pain Stated Complaint: Tightness in chest High BP,LAB Pain Time Seen by Provider: 12/22/24 00:23 History of Present Illness: Patient presents to the ER with some chest pressure and a high heart rate. He rates his chest pressure is a 0.5/10 and his heart rate is been all way up to 115 beats a minute today while he was sitting in a chair. Patient states he just restarted his paroxetine he is also on lisinopril and a baby aspirin daily. Patient is pain-free currently with a heart rate of approximate 100 beats a minute. Patient appears nontoxic in no acute distress. Related Data Previous Rx's ?Medication ?Instructions ?Recorded atomoxetine 18 mg capsule 18 mg PO QAM #30 caps 07/27/24 lisinopril 10 mg tablet 10 mg PO DAILY #90 tabs 07/27/24 paroxetine HCl 30 mg tablet 30 mg PO DAILY #90 tabs 07/27/24 sumatriptan succinate 100 mg 100 mg PO ONCE #10 tabs 07/27/24 tablet (Imitrex) topiramate 100 mg tablet 100 mg PO DAILY #90 tabs 07/27/24 trazodone 50 mg tablet 50 mg PO .q hs PRN insomnia #90 07/27/24 tabs Allergies Allergy/AdvReac Type Severity Reaction Status Date / Time methylphenidate (From AdvReac Severe HALUCINATIO Verified 07/27/24 15:19 Concerta) N Review of Systems General: Reports: 10 or more systems reviewed and unremarkable except in HPI and below PFSH ED PFSH: Medical History Expected bereavement due to life event Psychiatric care Social History Smoking and tobacco/nicotine status: never used tobacco/nicotine Second hand smoke exposure: Yes Alcohol intake: current Alcohol intake frequency: holidays/special occasions only Alcohol type: hard liquor Substance/Drug Use: never Current gender identity: Male Physical Exam Const: COMMON NORMALS: no acute distress, average body habitus, patient oriented x3, no limitations, healthy appearing, alert and well nourished HENMT: COMMON NORMALS: normocephalic, atraumatic, hearing grossly normal bilaterally, external ears normal and Normal external nose present HEAD & SCALP: normocephalic and atraumatic NOSE: Normal external nose present EXTERNAL EAR: Yes external ears normal Neck/C-Spine: COMMON NORMALS: full ROM, no lymphadenopathy, supple, no meningeal signs, no JVD and Thyroid normal THYROID: Thyroid normal Chest: COMMONS NORMALS: normal inspection of the chest and normal palpation of entire chest wall Resp: COMMON NORMALS: normal respiratory effort, No retractions, No use of accessory muscles and clear to auscultation bilaterally AUSCULTATION: clear to auscultation bilaterally Cardio: COMMON NORMALS: no JVD, regular rate, regular rhythm, S1 normal heart sound present, S2 normal heart sound present, No gallops present (Cardio), No clicks present (Cardio), No murmurs present (Cardio) and No rub (Cardio) RATE: regular rate RHYTHM: regular rhythm HEART SOUNDS: S1 normal heart sound present and S2 normal heart sound present GI: COMMON NORMALS: Normal to inspection, nondistended, normoactive bowel sounds present, Soft to palpation, non-tender, No hepatosplenomegaly present and no masses PALPATION: Yes Soft to palpation and Yes No hepatosplenomegaly present Neuro: COMMON NORMALS: patient oriented x3 SENSORIUM/ORIENTATION: Yes alert MENINGEAL SIGNS: Yes no meningeal signs Course Vital Signs: Vital signs: Vital Signs Temperature 98.3 F 12/21/24 20:57 Pulse Rate 91 12/22/24 00:45 Respiratory Rate 21 H 12/22/24 00:45 Blood Pressure 129/78 12/22/24 00:45 Pulse Oximetry 97 12/22/24 00:45 Oxygen Delivery Me thod Room Air 12/21/24 20:57 MDM - Chest Pain Medical Decision Making Chest pain workup including chest x-ray, EKG, serial cardiac enzymes, all essentially negative. Patient will be discharged home. Medical Records I reviewed the patient's medical records. Lab Data I reviewed the patient's lab results. 12/21/24 22:34 12/21/24 22:34 Radiology Impressions Chest X-Ray 12/21/24 22:19 IMPRESSION: No acute cardiopulmonary process. Laboratory Results WBC 8.65 10^3/uL (3.29-11.43) 12/21/24 22:34 RBC 5.71 10^6/uL (3.85-5.65) H 12/21/24 22:34 Hgb 15.70 g/dL (11.27-16.99) 12/21/24:34 Hct 46.8 % (37-53) 12/21/24: MCV 82.0 fl (82-101) 12/21/24: MCH 27.5 pg (27-33) 12/21/24: MCHC 33.5 g/dL (30-55) 12/21/24: RDW 12.1 % (12.1-15.1) 12/21/24: Plt Count 268 10^3/cmm (157-399) 12/21/24: MPV 11.1 fL (7.4-10.4) H 12/21/24: Neut % (Auto) 67.2 % 12/21/24: Lymph % (Auto) 25.2 % 12/21/24: [place] % (Auto) 5.0 % 12/21/24: Eos % (Auto) 1.5 % 12/21/24: Baso % (Auto) 0.8 % 12/21/24: Neut # (Auto) 5.81 10^3/uL (1.8-7.7) 12/21/24: Lymph # (Auto) 2.2 10^3/uL (0.8-4.8) 12/21/24: [place] # (Auto) 0.4 10^3/uL (0.2-0.9) 12/21/24: Eos # (Auto) 0.1 10^3/uL (0.0-0.8) 12/21/24: Baso # (Auto) 0.1 10^3/uL (0.0-0.1) 12/21/24: Nucleated RBC % (auto) 0 % 12/21/24: Nucleated RBCs # 0.0 /100WBC 12/21/24: Sodium 137 mmol/L (136-145) 12/21/24: Potassium 4.4 mmol/L (3.5-5.1) 12/21/24:34 Chloride 100 mmol/L (98-107) 12/21/24 22:34 Carbon Dioxide 25 mmol/L (22-29) 12/21/24 22:34 Anion Gap 16.4 (5-19) 12/21/24 22:34 BUN 15 mg/dL (6-20) 12/21/24 22:34 Creatinine 0.7 mg/dL (0.7-1.2) 12/21/24 22:34 GFR Calculation 132.4 mL/min (90-130) H 12/21/24 22:34 Glucose 104 mg/dL (65-115) 12/21/24 22:34 Calculated Osmolality 285 mOsm/kg (285-295) 12/21/24 22:34 Calcium 9.2 mg/dL (8.5-10.5) 12/21/24 22:34 Troponin T Baseline < 6 ng/L (0-15) 12/21/24 22:34 Troponin T 120 Minute 6.00 ng/L (0-15) 12/22/24 00:30 Delta Troponin T 0.43406 ABS# (0-10) 12/22/24 00:30 Coronavirus (PCR) Negative (Negative) 12/22/24 00:26 Influenza A (PCR) Negative (Negative) 12/22/24 00:26 Influenza Type B (PCR) Negative (Negative) 12/22/24 00:26 RSV (PCR) Negative (Negative) 12/22/24 00:26 All radiology interpretation(s) finalized by discharge Discharge Plan Discharge Patient Disposition: Home Clinical Impression: Atypical chest pain Condition: Stable Prescriptions: No Action trazodone 50 mg tablet 50 mg PO .q hs PRN (Reason: insomnia) Qty: 90 1RF Rx Instructions: Take 1 tablet at bedtime, if needed for insomnia topiramate 100 mg tablet 100 mg PO DAILY Qty: 90 1RF sumatriptan succinate [Imitrex] 100 mg tablet 100 mg PO ONCE Qty: 10 5RF Rx Instructions: take when headache starts, repeat an hour if needed paroxetine HCl 30 mg tablet 30 mg PO DAILY Qty: 90 1RF Rx Instructions: Take one tablet by mouth every morning lisinopril 10 mg tablet 10 mg PO DAILY Qty: 90 1RF atomoxetine 18 mg capsule 18 mg PO QAM Qty: 30 2RF Rx Instructions: Take one capsule by mouth every morning Discharge Orders: Discharge ED (Routine); Ordered 12/22/24 Ordered By: Kevon Miller Referrals: Duc Minor MD [Primary Care Provider] - 1 week Patient Instructions: Chest Pain (DC) Activity Restrictions/Additional Instructions: Evaluation in ER including lab work, chest x-ray, serial EKGs did not show any acute cardiac cause of your chest pain. Your chest pain is felt to be noncardiac in nature. Please follow-up with your family practice physician for further evaluation and treatment. Thank you for choosing [facility] for your healthcare needs today. Please realize that you were seen in the emergency department and that we are providing you with an emergency medical screening exam and this may not be a complete and all exclusive of all testing and/or medical workup we may need to determine your element or severity of your illness. It is very important that you follow-up as instructed with your primary care provider or specialist for the additional evaluation and to discuss your medical treatment plan. You may return to the emergency department should you have concerns or if your condition changes or worsens in any way. Print Language: Telugu Coding Level of Care Code ED Carbon Capture Power Plant Manager for Lavon Rojas
[2024-12-22 01:22] LABS: Covid PCR NEGATIVE (Negative); Influenza A NEGATIVE (Negative); Influenza B NEGATIVE (Negative); Respiratory Syncytial Virus Ce NEGATIVE (Negative)
[2024-12-22 01:39] VITALS: BP 124/87; PULSE 92; RESP 16; O2SAT 96
== END 2024-12-22 01:40 | disposition home or self-care (01) ==
PROVIDERS: Emergency Provider Emergency Medicine; PCP Family Medicine
DX: R07.89 Other chest pain (principal); Z11.52 Encounter for screening for COVID-19
CPT/HCPCS: 36415; 71045; 80048; 84484; 85025; 87637; 93005; 99285

== ENCOUNTER → 2025-03-20 12:42 | Outpatient (BNVA) | payer MEDICARE, MEDICAID, SELFPAY | PROVIDERS: PCP Family Medicine; Visit Provider Specialist | DX: G43.101 Migraine with aura, not intractable, with status migrainosus (principal) | CPT/HCPCS: 99212 ==

== ENCOUNTER 2025-09-07 23:53 | Emergency (ER) | payer MEDICARE, MEDICAID, SELFPAY ==
--- OUTSIDE RECORDS SUMMARY | 2024-12-19 08:00 | XMS_ITS ---
Author Organization [facility] Address [address] [place] [id number] Care Team Providers Care State Pilot Name Role Phone ( [facility] ), PHYSICIAN NOT IDENTIFIED Primary Care Provider Unavailable Konstantin Garcia Unavailable [phone] REASON FOR VISIT ext 1,16,17,19,32/nasal non smoker/pt requested afternoon Social History Sex Assigned At : Social History Observation Description Sex Assigned At Male Encounters Encounter Location Date Provider Diagnosis [address] [place] [address] [facility] [address] [place] [phone] 12/19/2024 Konstantin Garcia Plan Of Treatment No Information Progress Notes * Antonio EVANGELISTADOB:1995 (30 yo M)Acc No.[id number]:12/19/2024 Patient: Antonio Pina Provider: Jerman Ann DDS :1995 A ge:29 Y S ex:Male Date:12/19/2024 Address:[address] [place], [place] [id number] Pcp:PHYSICIAN NOT IDENTIFIED ( [facility] ) Subjective: * Chief Complaints: * E xt 1,16,17,19,32/nasal non smoker/pt requested afternoon * Electronic signature of Andrew Garcia DDS on 09/08/2025 at 12:15 AM CDT Sign off status: Pending * Provider: Jerman Ann DDS Date: 0 12/19/2024 Generated for Tanvir nam/Tereso/eTransmitting on: 1 12:15 AM CDT
--- OUTSIDE RECORDS SUMMARY | 2025-09-08 00:15 | XMS_ITS | Patient Health Record ---
Author Organization [facility] Address [address] [place] [address] Care Team Providers Care Airborne Mission Systems Superintendent Name Role Phone ( [facility] ), PHYSICIAN NOT IDENTIFIED Primary Care Provider Unavailable Konstantin Garcia Unavailable [phone] Allergies Allergen (clinical drug ingredient) Drug/Non Drug Allergy documented on EMR Reaction Allergy Type Onset Date Status methylphenidate Concerta holusinations Drug Allergy Active Reason For Referral No Information Medications Medication SIG (Take, Route, Fr equency, Duration) Notes Start Date End Date Status Atomoxetine HCl Acti ve traZODone HCl Active Paxil Active Social History Sex Assigned At : Social History Observation Description Sex Assigned At Male Vital Signs Heart Rate 90 /min 10/05/2024 Height-cm 175.26 cm 10/05/2024 Blood pressure diastolic 88 mm Hg 10/05/2024 Weight-kg 109.59 kg 10/05/2024 Height 69 in 10/05/2024 Blood pressure systolic 119 mm Hg 10/05/2024 Weight 241.6 lbs 10/05/2024 BMI 35.67 kg/m2 10/05/2024 Encounters Encounter Location Date Provider Diagnosis [facility] [address] [place] [address] 10/05/2024 Konstantin Garcia [address] [place] [address] [address] [place] [address] 11/21/2024 Konstantin Garcia [address] [place] [address] Dental Clinic [address] [place] [address] 12/01/2024 Konstantin Garcia Plan Of Treatment No Information Insurance Providers Payer Name Payer Address Payer Phone Subscriber Number Group Number Insured Name Patient Relationship to Insured Coverage Start Date Coverage End Date Medicaid Dental [address] [place] [address] [id number] TonjaReza madsenald Self - patient is the insured Medicaid [address] [place] [address] [id number] Antonio Evangelista Self - patient is the insured Medical (General) History Medical History History ICD Code mini [id number]/22
[2025-09-08 00:27] VITALS: BP 122/78; PULSE 114; RESP 18; TEMP 36.9; O2SAT 97; BMI 35.2
--- NOTE | 2025-09-08 02:59 | CTR_ITS ---
PROCEDURE INFORMATION: Exam: CT Head Without Contrast Exam date and time: 09/08/2025 3:08 AM Age: 30 years old Clinical indication: Pain; Headache; C/O PEGUERO with dizziness; Additional info: Headache, dizziness TECHNIQUE: Imaging protocol: Computed tomography of the head without contrast. Radiation optimization: All CT scans at this facility use at least one of these dose optimization techniques: automated exposure control; mA and/or kV adjustment per patient size (includes targeted exams where dose is matched to clinical indication); or iterative reconstruction. COMPARISON: MR head wo con* [id number] 09/01/2023 2:53 PM RADIATION DOSE METRICS: Total DLP (mGy-cm): 1199.32 FINDINGS: Brain: There is no evidence of acute parenchymal hemorrhage, extra-axial collection, or acute infarction. There is no mass effect, midline shift, or downward herniation. Cerebral ventricles: No ventriculomegaly. Paranasal sinuses: Visualized sinuses are unremarkable. No fluid levels. Mastoid air cells: Visualized mastoid air cells are well aerated. Bones: Unremarkable. No acute fracture. Soft tissues: Unremarkable. CT/CT head wo con* [id number] IMPRESSION: No acute intracranial abnormality.
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
[2025-09-08 04:24] VITALS: BP 123/75
[2025-09-08] MEDS: metoclopramide 5 mg/mL SDV 2 mL 10 MG IVP (05:01)
[2025-09-08 05:13] VITALS: BP 134/84; PULSE 108
[2025-09-08 05:17] VITALS: BP 117/82; O2SAT 95
[2025-09-08 05:23] VITALS: BP 117/82; BP 136/84; BP 137/83; PULSE 102; PULSE 108; PULSE 117
[2025-09-08 05:45] VITALS: BP 136/84
== END 2025-09-08 06:14 | disposition home or self-care (01) ==
PROVIDERS: Emergency Provider Emergency Medicine; PCP Family Medicine
DX: G43.101 Migraine with aura, not intractable, with status migrainosus (principal)
CPT/HCPCS: 70450; 96365; 96375; 99285; J1885; J2765; J3490

== ENCOUNTER 2025-09-25 14:09 | Outpatient (CLI) | payer MEDICARE, MEDICAID, SELFPAY ==
--- NOTE | 2025-09-25 14:15 | US_ITS ---
WS: [id number] ULTRASOUND SOFT TISSUES LEFT gluteal region. HISTORY: LEFT gluteus lara mass COMPARISON: None available. TECHNIQUE: 2-D and color Doppler imaging is submitted. Ultrasound directed over the LEFT gluteal region. Imaging is scanned as directed by the patient. No soft tissue mass identified. There is no skin thickening or shadowing. No cystic or solid collections. US/US soft tissue/extremity [id number] IMPRESSION: Normal ultrasound over the LEFT gluteal lara.
== END 2025-09-25 14:10 | disposition home or self-care (01) ==
LOC: RAD 14:11
PROVIDERS: PCP Family Medicine; Visit Provider Family Medicine
DX: R22.2 Localized swelling, mass and lump, trunk (principal)
CPT/HCPCS: 76882